=== PATIENT | female | born 1970 | race Two or more races ===

== ENCOUNTER 2024-01-29 14:42 | Emergency (ER) | payer OTHER ==
[~2024-01-29] VITALS: Ht 162.6 cm; Wt 56.2 kg
[2024-01-29] MEDS ORDERED: BARIUM SULFATE 450 ML ORAL.SUSP PO ONE (16:30)
[2024-01-29 17:35] LABS: HEMATOCRIT 39.2 % (36.0-45.00); HEMOGLOBIN 13.2 g/dL (12.0-15.00); MEAN CELL VOLUME 86.1 fL (80.00-100.00); MEAN CORPUSCULAR HEMOGLOBIN 28.9 pg (27.00-32.0); MEAN CORPUSCULAR HGB CONC 33.6 g/dl (32.0-36.0); PLATELET COUNT 257 K/uL (150-450); RED BLOOD COUNT 4.55 M/uL (4.00-6.00); RED CELL DISTRIBUTION WIDTH 12.8 % (11.5-14.5)
[2024-01-29 17:47] LABS: URINE APPEARANCE Cloudy; URINE BILIRRUBIN Negative (NEGATIVE); URINE BLOOD Negative; URINE COLOR Yellow; URINE GLUCOSE Negative (NEGATIVE); URINE KETONE Negative (NEGATIVE); URINE LEUKOCYTE Small; URINE NITRATE Negative; URINE PROTEIN Negative (NEGATIVE)
[2024-01-29 17:48] LABS: URINE BACTERIA 651.1 uL (0.0-1933); URINE EPITHELIAL CELLS 25.6 uL (0.0-38.8); URINE RBC 3.2 uL (0.0-20.8); URINE WBC 51.6 uL (0.0-23.2)
[2024-01-29 18:03] LABS: ALBUMIN 3.6 gm/dL (3.4-5.0); ALKALINE PHOSPHATASE 90 U/L (50-136); ALT/SGPT 15 U/L (12-78); AMYLASE 30 U/L (25-115); ANION GAP 7 (10.0-20.0); AST/SGOT 9 U/L (15-37); BILIRUBIN,CONJUGATED < 0.10 mg/dL (0.0-0.2); BLOOD UREA NITROGEN 14 mg/dL (7-18); BUN CREA RATIO 19 (7.0-25.0); CALCIUM 9.1 mg/dL (8.5-10.1); CARBON DIOXIDE 32 mEq/L (21-32); CHLORIDE 106 mmol/L (98-107); CREATININE SERUM 0.74 mg/dL (0.55-1.02); GFR 82.09; GLOBULINA 4.3 G/DL (2.4-3.5); GLUCOSE FASTING 85 mg/dL (65-100); LIPASE 58 U/L (13-75); OSMOLALITY SERUM 281 MOSM/KG (275-295); POTASSIUM 3.96 mEq/L (3.5-5.1); SODIUM 141 mmol/L (136-145); TOTAL PROTEIN 7.9 gm/dL (6.4-8.2)
== END 2024-01-29 22:34 | disposition home or self-care (01) ==
LOC: ER 14:44
PROVIDERS: General Practice
DX: R10.32 Left lower quadrant pain (principal)